=== PATIENT | female | born 1985 | race Caucasian/White ===

== ENCOUNTER 2016-09-25 12:00 | Emergency (ER) | payer MEDICAID ==
[2016-09-25 12:12] VITALS: BP 92/58; PULSE 65; RESP 18; TEMP 97.5; O2SAT 99
[2016-09-25] MEDS ORDERED: NS 1,000 ML IV ONE (12:12)
[2016-09-25] MEDS ORDERED: ONDANSETRON 4 MG/2 ML VIAL IVP ONE (12:12)
--- NOTE | 2016-09-25 12:22 | UCPHY ---
H & P Patient Type: Established Chief Complaint Nursing Narrative: Nausea, vomiting, diarrhea x 1 week. 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 Pt states he stopped lyrica 1.5 weeks ago. Time Seen by Provider: 09/25/16 12:11 HPI/ROS: CHIEF COMPLAINT: Vomiting HISTORY OF PRESENT ILLNESS: The patient is a 31-year-old female who comes to the Urgent Care complaining vomiting and diarrhea since stopping Lyrica a week ago. 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 She states that it 1st the look worked well but then stopped working and she was taking more and more of it. She became addicted and then stopped suddenly 1 week ago. She has not had a fever. She has not traveled outside of the country. She denies abdominal pain. REVIEW OF SYSTEMS: Constitutional: denies: chills, fever, recent illness, recent injury EENTM: denies: blurred vision, double vision, nose congestion Respiratory: denies: cough, shortness of breath Cardiac: denies: chest pain, irregular heart rate, lightheadedness, palpitations Gastrointestinal/Abdominal: See HPI Genitourinary: denies: dysuria, frequency, hematuria, pain Musculoskeletal: denies: joint pain, muscle pain Skin: denies: lesions, rash, jaundice, bruising Neurological: denies: headache, numbness, paresthesia, tingling, dizziness, weakness Hematologic/Lymphatic: denies: blood clots, easy bleeding, easy bruising Immunologic/allergic: denies: HIV/AIDS, transplant EXAM: GENERAL: Anxious, well-nourished and in no acute distress. HEAD: Atraumatic, normocephalic. EYES: Pupils equal round and reactive to light, extraocular movements intact, sclera anicteric, conjunctiva are normal. ENT: TMs normal, nares patent, oropharynx clear without exudates. Moist mucous membranes. NECK: Normal range of motion, supple without lymphadenopathy or JVD. LUNGS: Breath sounds clear to auscultation bilaterally and equal. No wheezes rales or rhonchi. HEART: Regular rate and rhythm without murmurs, rubs or gallops. ABDOMEN: Soft, nontender, normoactive bowel sounds. No guarding, no rebound. No masses appreciated. BACK: No CVA tenderness, no spinal tenderness, step-offs or deformities EXTREMITIES: Normal range of motion, no pitting or edema. No clubbing or cyanosis. NEUROLOGICAL: Cranial nerves II through XII grossly intact. Normal speech, normal gait. 5/5 strength, normal movement in all extremities, normal sensation PSYCH: Normal mood, normal affect. SKIN: Warm, dry, normal turgor, no visible rashes or lesions. Source: Patient Exam Limitations: No limitations - Personal History LMP (Females 10-55): 22-28 Days Ago Current Tetanus Diphtheria and Acellular Pertussis (TDAP): Yes Tetanus Vaccine Date: within 10 years - Medical/Surgical History Hx Asthma: No Hx Chronic Respiratory Disease: No Hx Diabetes: No Hx Cardiac Disease: No Hx Renal Disease: No Hx Cirrhosis: No Hx Alcoholism: No Hx HIV/AIDS: No Hx Splenectomy or Spleen Trauma: Yes Other PMH: SPLENECTOMY, R oopherectomy, depression - Family History Significant Family History: No pertinent family hx - Social History Smoking Status: Current every day smoker Alcohol Use: Sober Drug Use: None Constitutional: Initial Vital Signs Temperature (C) 36.4 C 09/25/16 12:03 Heart Rate 65 09/25/16 12:03 Respiratory Rate 18 09/25/16 12:03 Blood Pressure 92/58 L 09/25/16 12:03 O2 Sat (%) 99 09/25/16 12:03 O2 Delivery Mode Room Air Allergies/Adverse Reactions: No Known Allergies Allergy (Verified 09/25/16 12:11) Home Medications: Medication Instructions Recorded Citalopram 08/21/15 Seasonique 12/25/15 Ondansetron Odt [Zofran Odt 4 mg 4 mg PO Q4 PRN #10 tab 09/25/16 (RX)] Medical Decision Making ED Course/Re-evaluation: Patient is very emotional and angry about Lyrica. She thinks that she is withdrawing. Abdominal exam is benign. She is requesting fluids and nausea medication. She has taken Zofran before successfully. 1:10 p.m. the patient is feeling completely better. She is eager to go home. I will give her a prescription for Zofran. She is happy with this and declines any further workup or testing at this time. Differential Diagnosis: Partial list of the Differential diagnosis considered include but were not limited to; withdrawal, gastroenteritis, dehydration and although unlikely based on the history and physical exam, I also considered , electrolyte abnormality, sepsis. I discussed these differential diagnoses and the plan with the patient as well as the usual and expected course. The patient understands that the diagnosis is provisional and that in medicine we are not always correct and that further workup is often warranted. Usual and customary warnings were given. All of the patient's questions were answered. The patient was instructed to return to the emergency department should the symptoms at all worsen or return, otherwise to followup with the physician as we discussed. - Data Points Medications Given: Discontinued Medications Sodium Chloride (Ns) 1,000 mls @ 0 mls/hr IV EDNOW ONE PRN Reason: As Directed Stop: 09/25/16 12:13 Last Admin: 09/25/16 12:15 Dose: 1,000 mls Ondansetron HCl (Zofran) 4 mg IVP EDNOW ONE Stop: 09/25/16 12:13 Last Admin: 09/25/16 12:18 Dose: 4 mg Departure - Departure Disposition: Home, Routine, Self-Care Clinical Impression: Vomiting and diarrhea Condition: Fair Instructions: Dehydration (ED), Acute Nausea and Vomiting (ED) Referrals: Polly Leon MD [Medical Doctor] - As per Instructions Prescriptions: Ondansetron Odt [Zofran Odt 4 mg (RX)] 4 mg PO Q4 PRN #10 tab PRN Reason: Nausea & Vomiting - PQRS PQRS Measurement: Not applicable
== END 2016-09-25 13:17 | disposition home or self-care (01) ==
LOC: CED 12:00
DX: R11.2 Nausea with vomiting, unspecified (principal); R19.7 Diarrhea, unspecified
CPT/HCPCS: 96360-PO; 99214-PO; G0463-PO; J2405

== ENCOUNTER 2017-03-20 17:02 | Emergency (ER) | payer MEDICAID ==
[2017-03-20 17:25] VITALS: BP 111/58; PULSE 77; RESP 20; TEMP 97.2; O2SAT 97
== END 2017-03-20 17:46 | disposition left against medical advice (07) ==
LOC: CED 17:02
DX: Z53.21 Procedure and treatment not carried out due to patient leaving prior to being seen by health care provider (principal)

== ENCOUNTER 2017-03-20 18:29 | Emergency (ER) | payer MEDICAID ==
[2017-03-20 18:40] VITALS: BP 109/74; PULSE 84; RESP 18; TEMP 98.2; O2SAT 97
--- NOTE | 2017-03-20 19:10 | EDPHY ---
H & P Time Seen by Provider: 03/20/17 18:52 HPI/ROS: This patient was here a couple hours ago and left without being seen after approximately 2530 minutes. She return for evaluation of her URI symptoms complaining of one-week history of hoarse voice and sore throat of moderate intensity. Pain worsened slightly with eating food which she still tolerating good p.o. intake. She states that her hoarse voice is improving somewhat today but still present. She has associated dry cough. She has some difficulty sleeping due to the dry cough. She also reports some coryza and some right ear pain 4/10 in intensity. She notes no exacerbating or alleviating factors other than mild relief from [id number] analgesics. ROS: No high fevers or chills. No other constitutional symptoms HEENT: As per HPI. No drainage from the right ear. No change in her hearing. She reports no other complaints Neuro: No headache or focal symptoms Pulmonary: No pleuritic pain or significant shortness of breath. No bloody sputum. Cardiovascular: No chest pain. GI: No nausea vomiting Integumentary: No skin rash. 7 point ROS is otherwise negative Past Medical/Surgical History: Psychiatric history. Smoking Status: Current every day smoker Physical Exam: Physical Exam Vital signs are normal. General: No acute distress HEENT: Nose: Clear discharge bilaterally. No sinus tenderness to percussion. Ears: External canals and tympanic membranes are clear bilaterally. Right ear exam is notable for a clear effusion and a clear TM. TM is clear with no effusion. Oropharynx: Mild erythema to the posterior pharynx. No tonsillar swelling or exudates. Slightly hoarse voice. No drooling or stridor. Eyes: Pupils equal and react to light. Extraocular motions are intact. Neck: Supple with no meningismus. No lymphadenopathy Lungs: Faint expiratory wheeze with no rales or rhonchi. No increased work of breathing. Cardiac: Regular rate and rhythm with no murmur gallop or rub Skin: No rash or pallor. Neuro: Alert with no focal deficits noted. Initial differential diagnosis: Viral laryngitis and bronchitis, serous otitis , strep pharyngitis Constitutional: Initial Vital Signs Temperature (C) 36.8 C 03/20/17 18:37 Heart Rate 84 03/20/17 18:37 Respiratory Rate 18 03/20/17 18:37 Blood Pressure 109/74 10/20/17 18:37 O2 Sat (%) 97 03/20/17 18:37 Allergies/Adverse Reactions: No Known Allergies Allergy (Verified 03/20/17 17:25) Home Medications: Medication Instructions Recorded Citalopram 08/21/15 Albuterol Hfa Anes Only [Proair 2 puffs IH Q4 PRN #1 mdi 03/20/17 Hfa Icu (*)] Benzonatate [Tessalon Pearles (RX)] 100 - 200 mg PO TID PRN #20 cap 03/20/17 Fluticasone Nasal [Flonase Nasal 2 sprays NASAL DAILY #1 mdi 03/20/17 [place] (RX)] Lyrica 03/20/17 Seroquel 03/20/17 MDM/Departure - MDM Diagnostics: Rapid strep is negative ED Course/Re-evaluation: Counseled patient regarding viral laryngitis and bronchitis as well as serous otitis. We ruled out strep. She appears clinically well. No clinical evidence of lower respiratory infection or other concerning findings. Will treat with symptom control-Flonase, Tessalon Perles, albuterol if needed for cough wheezing and I counseled her to quit smoking. - Depart Disposition: Home, Routine, Self-Care Clinical Impression: Laryngitis, Viral bronchitis Serous otitis media Qualifiers: Chronicity: acute Laterality: right Recurrence: not specified as recurrent Qualified Code(s): H65.01 - Acute serous otitis media, right ear Condition: Good Instructions: How to Stop Smoking (ED), Laryngitis (ED), Acute Bronchitis (ED) Additional Instructions: Diagnoses: 1. Laryngitis 2. Viral bronchitis 3. Serous otitis Plan: Humidifier Flonase steroid nasal spray for nasal congestion and to clear per year Ibuprofen and Tylenol for pain as needed Albuterol inhaler for cough, wheeze or shortness of breath Tessalon Perles for cough prevents sleep Symptoms should gradually improve over the next 5-7 days Return for any significant worsening despite the treatment plan Prescriptions: Albuterol Hfa Anes Only [Proair Hfa Icu (*)] 2 puffs IH Q4 PRN #1 mdi PRN Reason: Wheezing Benzonatate [Tessalon Pearles (RX)] 100 - 200 mg PO TID PRN #20 cap PRN Reason: cough Fluticasone Nasal [Flonase Nasal [place] (RX)] 2 sprays NASAL DAILY #1 mdi Referrals: NONE *PRIMARY CARE P,. [Primary Care Provider] - As per Instructions
== END 2017-03-20 19:20 | disposition home or self-care (01) ==
LOC: CED 18:29
DX: J04.0 Acute laryngitis (principal); J20.8 Acute bronchitis due to other specified organisms; B97.89 Other viral agents as the cause of diseases classified elsewhere; H65.01 Acute serous otitis media, right ear; F17.200 Nicotine dependence, unspecified, uncomplicated
CPT/HCPCS: 87880-PO